=== PATIENT | male | born 1965 ===

== ENCOUNTER 2019-04-25 16:13 | Outpatient (REF) | payer BC, SELFPAY ==
[2019-04-25 18:44] LABS: Anion Gap 15.4 mmol/L (3-11); BUN 14 mg/dL (7-18); CO2 22.6 mmol/L (21.0-32.0); CREATININE 0.85 mg/dL (0.70-1.30); Calcium 9.5 mg/dL (8.5-10.1); Chloride 103 mmol/L (98-107); Glucose 94 mg/dL (70-100); Potassium 4.2 mmol/L (3.5-5.1); Sodium 141 mmol/L (136-145)
[2019-04-27 12:05] LABS: Hepatitis C Ab w Rflx HCV PCR Negative (NEGAT)
== END 2019-04-25 16:33 ==
LOC: NCHCN 16:13
PROVIDERS: PCP Family Medicine; Visit Provider Family Medicine
DX: Z00.00 Encounter for general adult medical examination without abnormal findings (principal); Z13.228 Encounter for screening for other metabolic disorders; Z11.59 Encounter for screening for other viral diseases
CPT/HCPCS: 80048; 86803

== ENCOUNTER 2020-04-29 17:42 | Outpatient (REF) | payer BC, SELFPAY ==
[2020-04-29 19:01] LABS: Abs Immature Grans 0.03 10^3/uL (0.0-0.06); Absolute Basophil Count 0.04 10^3/uL (0.0-0.2); Absolute Eosinophil Count 0.16 10^3/uL (0.0-0.7); Absolute Lymphocyte Count 2.81 10^3/uL (1.2-3.4); Absolute Monocyte Count 0.64 10^3/uL (0.1-0.8); Basophils % 0.6; Eosinophils % 2.3; HCT 45.6 % (40.0-50.0); HGB 15.4 g/dL (13.5-17.5); Immature Grans % 0.4; Lymphocytes % 40.8; MCH 30.3 pg (27.0-33.0); MCHC 33.8 % (32.0-36.0); MCV 89.6 fL (80-95); MPV 10.2 fL (8.0-11.0); Monocytes % 9.3; Neutrophils % 46.6; Nucleated RBC 0 %; Platelet Count 245 10^3/uL (130-400); RBC 5.09 10^6/uL (4.36-5.78); RDW 12.3 % (11.8-14.1); RDW-SD 40.7 fL; WBC 6.88 10^3/uL (4.4-10.8)
[2020-04-29 19:37] LABS: Anion Gap 8.1 mmol/L (3-11); BUN 13 mg/dL (7-18); CO2 27.9 mmol/L (21.0-32.0); CREATININE 0.81 mg/dL (0.70-1.30); Calcium 9.5 mg/dL (8.5-10.1); Chloride 101 mmol/L (98-107); Glucose 81 mg/dL (74-106); Sodium 137 mmol/L (136-145); TSH (W/Ref FT4) 1.28 uIU/mL (0.36-3.74); Vitamin B12 467 pg/mL (193-986)
== END 2020-04-29 18:02 ==
LOC: NCHCN 17:42
PROVIDERS: PCP Family Medicine; Visit Provider Family Medicine
DX: I10 Essential (primary) hypertension (principal); F32.9 Major depressive disorder, single episode, unspecified
CPT/HCPCS: 80048; 82607; 84443; 85025

== ENCOUNTER 2020-07-04 21:57 | Emergency (ER) | payer BC, SELFPAY ==
[2020-07-04 22:01] VITALS: BP 160/96; PULSE 91; RESP 20; TEMP 36.4; O2SAT 97
--- NOTE | 2020-07-04 22:12 | ED.GENADUL_ITS ---
Discharge Plan Disposition Patient Disposition: HOME Condition: Stable Discharge Details Clinical Impression: Acute prostatitis Primary Care Provider: Yosef Armenta ED Provider: Hudson Fraser Home Meds and New Rx's Prescriptions: New ciprofloxacin HCl 500 mg tablet 500 mg PO BID 9 Days Qty: 18 RF: 0 phenazopyridine [Pyridium] 100 mg tablet 100 mg PO BID 2 Days Qty: 4 RF: 0 Continued nabumetone 500 mg tablet 500 mg PO BID RF: 0 propranolol 80 mg capsule,extended release 24 hr 80 mg PO DAILY RF: 0 ibuprofen [Advil] 200 mg tablet 200 mg PO Q6H PRNRF: 0 sildenafil [Viagra] 50 mg tablet 50 mg PO DAILY PRNRF: 0 lisinopril-hydrochlorothiazide 20-25 mg tablet 1 tab PO DAILY RF: 0 omeprazole 20 mg capsule,delayed release(DR/EC) 20 mg PO DAILY RF: 0 Discharge Instructions Additional Instructions: Follow-up with Dr. Armenta in clinic if not improving in 3 to 5 days time. Take Pyridium as prescribed twice daily. This will relieve the burning sensation and may turn your urine bright orange. Take antibiotics as prescribed. Return to the ER for any acute concerns. Medical Decision Making 55-year-old male presents from home with 3 days of intermittent episodes of urinary burning. Seems to be most at the start of the stream of urine. Patient says he is also had increased urgency to go and frequency of urination. Denies back pain or fever. No bloody urine. Patient's vital signs are unremarkable, he has known hypertension. His exam is unremarkable. Differential diagnosis includes acute cystitis, prostatitis, renal colic. Patient screening labs obtained, urinalysis, and is referred for CT of the abdo men and pelvis. He was given Pyridium for relief of his dysuria. Urinalysis is essentially unremarkable and the patient's labs note a white count of 12. CT without acute intra-abdominal pathology. Note of enlarged prostate with stranding. Most consistent with prostatitis. Discussed digital exam which we will defer. We will treat him with 10 days of fluoroquinolone. He understands homecare and is appropriate for discharge at this time. HPI General Mode of arrival: ambulatory . Date/Time Provider Initiated Documentation: 07/04/20 21:58 . Limitations to Documentation: no limitations . Information obtained by: patient . History of Present Illness 55 year old M presents to the emergency department with the chief complaint of Urinary burning, frequency and urgency for 3 days, described as moderate, and is localized to the pelvis. Patient reports no radiation. Patient started experiencing this day(s) and it has been intermittent. No relieving factors improve symptom(s), No exacerbating factors reported . Patient notes other (No back pain); denies fever/chills, loss of appetite and nausea/vomiting. Patient did receive the following treatments prior to arrival, none Related Data Home Medications Medication Instructions Recorded Confirmed ibuprofen 200 mg tablet 200 mg PO Q6H PRN 06/14/20 07/04/20 lisinopril 20 1 tab PO DAILY 06/14/20 07/04/20 mg-hydrochlorothiazide 25 mg tablet nabumetone 500 mg tablet 500 mg PO BID 06/14/20 07/04/20 omeprazole 20 mg capsule,delayed 20 mg PO DAILY 06/14/20 07/04/20 release propranolol 80 mg capsule,24 80 mg PO DAILY 06/14/20 07/04/20 hr,extended release sildenafil 50 mg tablet 50 mg PO DAILY PRN 06/14/20 07/04/20 ciprofloxacin HCl 500 mg PO BID 9 Days #18 tab 07/04/20 phenazopyridine [Pyridium] 100 mg PO BID 2 Days #4 tab 07/04/20 Previous Rx's Medication Instructions Recorded ciprofloxacin HCl 500 mg PO BID 9 Days #18 tab 07/04/20 phenazopyridine [Pyridium] 100 mg PO BID 2 Days #4 tab 07/04/20 Allergies Allergy/AdvReac Type Severity Reaction Status Date / Time No Known Allergies Allergy Unverified 07/04/20 22:04 General Stated Complaint: Urinary AME: 3 Review of Systems Narrative: 6 systems reviewed and otherwise negative [facility] Medical History Adenomatous colon polyp Back pain Depression Erectile dysfunction GERD (gastroesophageal reflux disease) History of depression Hypertension Obesity Plantar fasciitis PTSD (post-traumatic stress disorder) Tinea versicolor Tobacco use Social History Smoking/Tobacco Use Status: Former Tobacco Use Smoking risk assessment performed?: Yes Alcohol Intake: current Alcohol Intake frequency: holidays/special occasions only Drug use: Never Do you feel safe at home: Yes Do you feel safe in your relationship?: Yes Exam Narrative Exam Narrative: GEN: awake, alert, oriented 3. Pleasant, well groomed, interactive. HEAD: Normocephalic, atraumatic ENT: Mucous membranes moist, oropharynx unremarkable, External ear exam unremarkable EYES: PERRL, EOMI NECK: Full ROM, no CARLI, no menigismus CHEST/RESP: Nontender, clear to auscultation bilateral, no wheeze/rhonchi/rales CARDIOVASCULAR: RRR, no murmur, rub minesh. 2+ Rad pulse bilateral ABDOMEN: Soft, nontender, no mass. +Bowel sounds EXT: Full ROM, no edema, no rash Neuro: Grossly normal neurologic exam, conversant, interactive. Psych: Speech fluent, thoughts congruent, affect normal Course Vital Signs Vital signs: Vital Signs Temperature 36.4 C L 07/04/20 22:01 Pulse 91 H 07/04/20 22:01 Respiratory Rate 20 07/04/20 22:01 Blood Pressure 160/96 H 07/04/20 22:01 Pulse Oximetry 97 07/04/20 22:01 Temperature 36.4 C L 07/04/20 22:01 Temperature Source Temporal Artery Scan 07/04/20 22:01 Pulse 91 H 07/04/20 22:01 Respiratory Rate 20 07/04/20 22:01 Respiratory Effort Non-Labored 07/04/20 22:04 Blood Pressure 160/96 H 07/04/20 22:01 Blood Pressure Position Sitting 07/04/20 22:01 Pulse Oximetry 97 07/04/20 22:01 Oxygen Delivery Method Room Air 07/04/20 22:01 Oxygen Flow Rate 0 07/04/20 22:01 Pain Level 9 07/04/20 22:04
[2020-07-04 22:31] LABS: Bilirubin Negative (Negative); Blood Negative (Negative); Clarity Clear (Clear); Glucose Negative (Negative); Ketones Negative (Negative); Leukocyte Esterase Negative (Negative); Nitrite Negative (Negative); Specific Gravity 1.025 (1.005-1.025); Urobilinogen 0.2 EU/dL (Up TO 0.2); pH 6.5 (5-8)
[2020-07-04 22:49] LABS: Abs Immature Grans 0.07 10^3/uL (0.0-0.06); Absolute Basophil Count 0.05 10^3/uL (0.0-0.2); Absolute Eosinophil Count 0.19 10^3/uL (0.0-0.7); Absolute Lymphocyte Count 2.44 10^3/uL (1.2-3.4); Absolute Monocyte Count 1.25 10^3/uL (0.1-0.8); Absolute Neutrophil Count 8.14 10^3/uL (1.2-6.7); Basophils % 0.4; Eosinophils % 1.6; HCT 42.6 % (40.0-50.0); HGB 14.5 g/dL (13.5-17.5); Immature Grans % 0.6; Lymphocytes % 20.1; MCH 30.3 pg (27.0-33.0); MCV 88.9 fL (80-95); MPV 9.1 fL (8.0-11.0); Monocytes % 10.3; Nucleated RBC 0 %; Platelet Count 255 10^3/uL (130-400); RBC 4.79 10^6/uL (4.36-5.78); RDW 12.2 % (11.8-14.1); RDW-SD 40.2 fL; WBC 12.15 10^3/uL (4.4-10.8)
--- NOTE | 2020-07-04 23:00 | DI.CT_ITS ---
EXAM: CT ABDOMEN PELVIS WO CLINICAL HISTORY: urinary frequency, pain. TECHNIQUE: Imaging Protocol: Axial computed tomography images with coronal and sagittal reformatted images were created and reviewed. COMPARISON: No exams were available for comparison FINDINGS: ABDOMEN: Lung Bases: No nodules or pleural effusions. Liver: Mild steatosis. No obvious focal lesions evident on this non few study. No dilatation of int rahepatic ducts. Gallbladder and biliary tract: Gallbladder is small. No obvious calculi nor dilatation of the biliar y tree, both intra and extrahepatic. Pancreas: Unremarkable. No mass. Ducts not dilated. Spleen: Normal. Kidneys: There are 2 exophytic cyst off the superior pole of the left kidney. Towards the inferior p ole there is another probable cyst measuring 1.8 centimetres. In the opposite-right kidney there rashmi ears to be a is 1.5 centimeter cyst in the medial cortex. Difficult to assess without IV contrast. There are no renal calculi. No hydronephrosis nor hydroureter. Urinary bladder is not distended. B ladder wall is uniformly thickened but this may be due to the underdistention versus cystitis. Prost ate gland is not enlarged. Adrenal glands: No mass is seen. Lymph nodes: Within normal limits. Abdominal Aorta: No evidence of abdominal aortic aneurysm. There is no para-aortic adenopathy. No a denopathy around the aortic bifurcation nor along the iliac chains and there is no inguinal adenopath y. There is an anterior abdominal wall umbilical hernia which contains fat and no bowel loops. There is no bowel obstruction. No free air. No ascites. PELVIS: There is no intrapelvic or inguinal adenopathy. No evidence for appendicitis. There are sigmoid div erticula but no evidence of acute diverticulitis. No free fluid in the pelvis. Osseous: No lytic osseous lesions identified. IMPRESSION: 1. Hepatic steatosis. No obvious focal lesions evident in the liver on this non few study. 2. Bilateral renal cysts, somewhat difficult to evaluate accurately without IV contrast and might con shaker operator follow-up renal ultrasound for confirmation. 3. Anterior abdominal wall midline umbilical hernia which contains fat and no bowel loops. There is no bowel obstruction. RADIATION DOSE DELIVERED: 1,310.59mGy.cm Total DLP DATA REPOSITORY: All CT scans at this facility are submitted to the National Radiology Data Registry (NRDR) Dose Index Registry (DIR) with the [employer] ([employer]). RADIATION OPTIMIZATION: All CT scans at this facility use at least one of these dose optimization te chniques: automated exposure control; mA and/or kV adjustment per patient size (includes targeted exa ms where dose is matched to clinical indication); or iterative reconstruction.
[2020-07-04 23:03] LABS: ALT 30 U/L (16-63); AST 15 U/L (15-37); Albumin 3.4 g/dL (3.4-5.0); Alkaline Phosphatase 51 U/L (46-116); Anion Gap 8.4 mmol/L (3-11); BUN 14 mg/dL (7-18); Bilirubin, Total 0.5 mg/dL (0.2-1.0); CO2 24.6 mmol/L (21.0-32.0); CREATININE 0.99 mg/dL (0.70-1.30); Calcium 8.8 mg/dL (8.5-10.1); Chloride 104 mmol/L (98-107); Glucose 114 mg/dL (74-106); Sodium 137 mmol/L (136-145); Total Protein 7.8 g/dL (6.4-8.2)
--- NOTE | 2020-07-04 23:18 | DI.VRAD_ITS ---
PROCEDURE INFORMATION: Exam: CT Abdomen And Pelvis Without Contrast Exam date and time: 07/04/2020 10:40 PM Age: 55 years old Clinical indication: Abdominal pain; Generalized TECHNIQUE: Imaging protocol: Computed tomography of the abdomen and pelvis without contrast. Radiation optimization: All CT scans at this facility use at least one of these dose optimization techniques: automated exposure control; mA and/or kV adjustment per patient size (includes targeted exams where dose is matched to clinical indication); or iterative reconstruction. COMPARISON: No relevant prior studies available. FINDINGS: Liver: Hepatic steatosis. Gallbladder and bile ducts: No calcified stones. No ductal dilation. Pancreas: No ductal dilation. Spleen: No splenomegaly. Adrenal glands: Normal. No mass. Kidneys and ureters: Left renal cortical cyst, 2.3 cm, appears to be simple. Right renal cortical cyst, 2.6 centimetres, appears to be simple. Stomach and bowel: Colonic diverticulosis. Linear density within small bowel loops in the pelvis, 3.5 centimetres in length, possibly ingested Appendix: No evidence of appendicitis. Intraperitoneal space: No free air. No significant fluid collection. Vasculature: Atherosclerotic abdominal aorta and branches. Lymph nodes: No enlarged lymph nodes. Urinary bladder: Unremarkable as visualized. Reproductive: Enlarged prostate. Bones/joints: Degenerative changes within thoracic and lumbar spine. Soft tissues: The abdomen is obese. Fat containing umbilical hernia. IMPRESSION: No acute intra-abdominal pathology. Dictated and Authenticated by: Jose Milligan MD. Ordering:SERGIO Treviño MD
[2020-07-04] MEDS: Phenazopyridine 100 MG TAB, 2 TABS/BTL PO (23:32)
[2020-07-04 23:33] VITALS: BP 138/88; PULSE 82; RESP 16; O2SAT 96
== END 2020-07-04 23:36 | disposition home or self-care (01) ==
PROVIDERS: Emergency Provider Emergency Medicine; PCP Family Medicine
DX: N41.0 Acute prostatitis (principal); R35.0 Frequency of micturition; I10 Essential (primary) hypertension
CPT/HCPCS: 80053; 99284; 74176; 81003; 85025

== ENCOUNTER 2020-08-05 03:34 | Outpatient (CLI) | payer BC, SELFPAY ==
[2020-08-06 19:21] LABS: COVID-19 RT-PCR UVMMC Result Negative (Negative)
== END 2020-08-05 03:54 ==
PROVIDERS: PCP Family Medicine; Visit Provider Surgery
DX: Z11.59 Encounter for screening for other viral diseases (principal); Z01.818 Encounter for other preprocedural examination
CPT/HCPCS: U0003

== ENCOUNTER 2020-08-08 06:04 | Day surgery (SDC) | payer BC, SELFPAY ==
[2020-08-08 06:28] VITALS: BP 136/106; PULSE 87; RESP 16; TEMP 36.6; O2SAT 97
[2020-08-08] MEDS: Lactated Ringers 1,000 ML 80 ML IV (06:56)
--- NOTE | 2020-08-08 09:20 | BOWEL_PTH ---
PATIENT: Nicole Mueller LOC: [facility] U#:[id number] AGE/SX: 55/M ROOM: RE08/08/[address]: Jinny Chandra : 1965 BED: DIS: 08/08/2020 SPEC #: [id number] RECD: 08/08/20 12:48 STATUS: NAVA REQ #: [id number] HAYDER: 08/08/20 09:[address]: Jinny Chandra DEPT: Surgical Specimen RECD BY: Jennifer Howell ENTERED: 08/08/20 12:50 SP TYPE: Bowel OTHR DR: Yosef Armenta Tissues: 1 - BIOPSY BOWEL 2 - BIOPSY BOWEL 3 - BIOPSY BOWEL 4 - BIOPSY BOWEL Procedures: GROSS AND MICRO LEVEL 4 Comments: [id number]
--- NOTE | 2020-08-08 09:51 | W.PM.DSUDISC ---
Discharge Plan Disposition Patient Disposition: HOME Condition: Good Discharge Details Reason For Visit: colon scope Attending Provider: Jinny Chandra Primary Care Provider: Yosef Armenta Home Meds and New Rx's Prescriptions: Continued propranolol 80 mg capsule,extended release 24 hr 80 mg PO DAILY RF: 0 ibuprofen [Advil] 200 mg tablet 200 mg PO Q6H PRNRF: 0 sildenafil [Viagra] 50 mg tablet 50 mg PO DAILY PRNRF: 0 lisinopril-hydrochlorothiazide 20-25 mg tablet 1 tab PO DAILY RF: 0 omeprazole 20 mg capsule,delayed release(DR/EC) 20 mg PO DAILY RF: 0 Discontinued polyethylene glycol 3350 17 gram/dose powder 238 g PO ONCE Qty: 238 RF: 0 bisacodyl [Dulcolax (bisacodyl)] 5 mg tablet,delayed release (DR/EC) 5 mg PO ONCE Qty: 4 RF: 0 Discharge Instructions Additional Instructions: Findings:polyps x4. Very small and diverticula Follow up: will send a letter w/ results (2-3 wks) and when to repeat the scope (probably 3-5yrs) Please call if you develop: fevers >101.5 Nausea or Vomiting Abdominal pain that is not transient DAY SURGERY UNIT POST COLONOSCOPY INSTRUCTIONS 1. Because there will be medication in your system for the next 24 hours, you may feel a little sleepy. Your coordination will be affected. Therefore: a. Do not drive or operate dangerous equipment for 24 hours. b. Do not drink alcohol beverages for 24 hours (not even beer). c. Plan to go home and rest for the day. 2. Generally there are no restrictions on your activity after a day or so has gone by, but you may feel a bit fatigued for a few days. 3 After you arrive home you may have a light meal and return to a normal diet as you can tolerate it without feeling sick to your stomach. 4. After surgery, you may feel pain or discomfort. This should be only transient, but if it persists please contact your doctor. 5. If there are any questions regarding the findings of your procedure, please feel free to contact your doctor. 6. If you are unable to contact your doctor with a problem, contact the hospital at [phone]. 7. Continue all your regular medications unless directed otherwise. I understand the above instructions and have no questions. Signature of Patient or Responsible Adult Escort Date/Time Name of Responsible Adult Escort Signature of Nurse Date/Time DIVERTICULAR DISEASE OVERVIEW ? A diverticulum is a pouch-like structure that can form through points of weakness in the muscular wall of the colon (ie, at points where blood vessels pass through the wall). Diverticulosis affects men and women equally. The risk of diverticular disease increases with age. It occurs throughout the world but is seen more commonly in developed countries. WHAT IS DIVERTICULAR DISEASE? Diverticulosis ? Diverticulosis merely describes the presence of diverticula. Diverticulosis is often found during a test done for other reasons, such as flexible sigmoidoscopy, colonoscopy, or barium enema. Most people with diverticulosis have no symptoms and will remain symptom free for the rest of their lives. A person with diverticulosis may have diverticulitis, or diverticular bleeding. Diverticulitis ? Inflammation of a diverticulum (diverticulitis) occurs when there is thinning and breakdown of the diverticular wall. This may be caused by increased pressure within the colon or by hardened particles of stool, which can become lodged within the diverticulum. The symptoms of diverticulitis depend upon the degree of inflammation present. The most common symptom is pain in the left lower abdomen. Other symptoms can include nausea and vomiting, constipation, diarrhea, and urinary symptoms such as pain or burning when urinating or the frequent need to urinate. Diverticulitis is divided into simple and complicated forms. ?Simple diverticulitis, which accounts for 75 percent of cases, is not associated with complications and typically responds to medical treatment without surgery. ?Complicated diverticulitis occurs in 25 percent of cases and usually requires surgery. Complications associated with diverticulitis can include the following: ?Abscess ? a localized collection of pus ?Fistula ? an abnormal tract between two areas that are not normally connected (eg, bowel and bladder) ?Obstruction ? a blockage of the colon ?Peritonitis ? infection involving the space around the abdominal organ ?Sepsis ? overwhelming body-wide infection that can lead to failure of multiple organs Diverticular bleeding ? Diverticular bleeding occurs when a small artery located within a diverticulum is eroded and bleeds into the colon. Diverticular bleeding usually causes painless bleeding from the rectum. In approximately 50 percent of cases, the person will see maroon or bright red blood with bowel movements. Is bleeding with a bowel movement normal? ? It is not normal to see blood in a bowel movement; this can be a sign of several conditions, most of which are not serious (eg, hemorrhoids) but some of which are serious and require immediate treatment. Anyone who sees blood after a bowel movement should consult with their healthcare provider to determine if further testing or evaluation is needed. DIVERTICULOSIS AND DIVERTICULITIS DIAGNOSIS ? Diverticulosis is often found during tests performed for other reasons. ?Barium enema ? This is an x-ray study that uses barium in an enema to view the outline of the lower intestinal tract. This is an older test and has been largely replaced by computed tomography (CT) scan. ?Flexible sigmoidoscopy ? This is an examination of the inside of the sigmoid colon with a thin, flexible tube that contains a camera. ?Colonoscopy ? This is an examination of the inside of the entire colon. ?CT scan ? A CT scan is often used to diagnose diverticulitis and its complications. If diverticulitis (not just diverticulosis) is suspected, the above three tests should not be used because of the risk of perforation. TREATMENT Diverticulosis ? People with diverticulosis who do not have symptoms do not require treatment. However, most clinicians recommend increasing fiber in the diet, which can help to bulk the stools and possibly prevent the development of new diverticula, diverticulitis, or diverticular bleeding. Fiber is not proven to prevent these conditions in all patients but may help to control recurrent episodes in some. Increase fiber ? Fruits and vegetables are a good source of fiber. Fiber content of packaged foods can be calculated by reading the nutrition label. Seeds and nuts ? Patients with diverticular disease have historically been advised to avoid whole pieces of fiber (such as seeds, corn, and nuts) because of concern that these foods could cause an episode of diverticulitis. However, this belief is completely unproven. We do not suggest that patients with diverticulosis avoid seeds, corn, or nuts. Diverticulitis ? Treatment of diverticulitis depends upon how severe your symptoms are. Home treatment ? If you have mild symptoms of diverticulitis (mild abdominal pain, usually left lower abdomen), you can be treated at home with a clear liquid diet and oral antibiotics. However, if you develop one or more of the following signs or symptoms, you should seek immediate medical attention: ?Temperature >100.1?F (38?C) ?Worsening or severe abdominal pain ?An inability to tolerate fluids Hospital treatment ? If you have moderate to severe symptoms, you may be hospitalized for treatment. During this time, you are not allowed to eat or drink; antibiotics and fluids are given into a vein. If you develop an abscess of the colon, you may require drainage of the abscess (usually performed by placing a drainage tube across the abdominal wall) or by surgically opening the affected area. Surgery ? If you develop a generalized infection in the abdomen (peritonitis), you will usually require an emergency operation. A two-part operation may be necessary in some cases. ?The first operation involves removal of the diseased colon and creation of a colostomy. A colostomy is an opening between the colon and the skin, where a bag is attached to collect waste from the intestine. The lower end of the colon is temporarily sewed closed to allow it to heal. ?Approximately three to six months later, a second operation is performed to reconnect the two parts of the colon and close the opening in the skin. You are then able to empty your bowels through the rectum. Sometimes patients require up to a year to recover from the first operation, depending on how sick they were. In non-emergency situations, the diseased area of the colon can be removed and the two ends of the colon can be reconnected in one operation, without the need for a colostomy. Surgery versus medical therapy ? An operation to remove the diseased area of the colon may be necessary if you do not improve with medical therapy. After an episode of uncomplicated diverticulitis, elective surgery is generally not required as the risk of another attack or requiring emergency surgery is low. However, patients with persistent symptoms attributable to diverticulitis, a history of complicated diverticulitis, or a compromised immune system should be evaluated for possible surgery to prevent another attack. In such patients, another attack has been associated with a higher risk of complications or . Of course, the decision will also depend in part upon your other medical conditions and ability to undergo surgery. In many cases, an elective operation can be performed laparoscopically, using small incisions, rather than the typical vertical (up and down) abdominal incision. Laparoscopic surgery usually allows you to recover more quickly and shortens the hospital stay. After diverticulitis resolves ? After an episode of diverticulitis resolves, if you have not had a recent colonoscopy, the entire length of the colon should be evaluated to determine the extent of disease and to rule out the presence of abnormal lesions such as polyps or cancer. Recommended tests include colonoscopy, barium enema and sigmoidoscopy, or CT colonography. Diverticular bleeding ? Most cases of diverticular bleeding resolve on their own. However, some people will need further testing or treatment to stop bleeding, which may include a colonoscopy, angiography (a treatment that blocks off the bleeding artery), bleeding scan, or surgery. DIVERTICULAR DISEASE PROGNOSIS Diverticulosis ? Over time, diverticulosis may cause no problems or it may cause episodes of bleeding and/or diverticulitis. Approximately 15 to 25 percent of people with diverticulosis will develop diverticulitis, while 5 to 15 percent will develop diverticular bleeding. Diverticulitis ? Approximately 85 percent of people with uncomplicated diverticulitis will respond to medical treatment, while approximately 15 percent of patients will need an operation. After successful treatment for a first attack of diverticulitis, one-third of patients will remain asymptomatic, one-third will have episodic cramps without diverticulitis, and one-third will go on to have a second attack of diverticulitis. The prognosis tends to remain similar following a second attack of diverticulitis. Only 10 percent of people remain symptom-free after a second attack. Subsequent attacks tend to be of similar severity, not increasing in severity as previously believed. High Fiber Diet What is Dietary Fiber? All fiber comes from plants, bushes, alyssa or trees. Of course, the ones that we eat provide us with fruits, vegetables and grains. There are many different types of fiber but the three that are most important to the health of the body are: Insoluble Fiber This fiber does not dissolve in water, nor is it fermented by the bacteria residing in the colon. Rather, it retains water and in so doing, helps to promote a larger, bulkier and more regular bowel activity. This, in turn, may be important in preventing disorder such as diverticulosis and hemorrhoids, and in sweeping out certain toxins and cancer causing carcinogens. Sources of insoluble fiber are: ? whole grain wheat and other whole grains ? corn bran, including popcorn, unflavored and unsweetened ? nuts and seeds ? potatoes and the skins from most fruits from trees such as apples, bananas and avocados ? many green vegetables such as green beans, zucchini, celery and cauliflower ? some fruit plants such as tomatoes and kiwi Soluble Fiber These fibers are fermented or used by the colon bacteria as a food source or nourishment. When these good bacteria grow and thrive, many health benefits occur in both the colon and the body. Soluble fiber is present in some degree in most edible plant foods, but the ones with the most soluble fiber include: ? legumes such as peas and most beans, including soybeans ? oats, rye and barley ? many fruits such as berries, plums, apples bananas and pears ? certain vegetables such as broccoli and carrots ? most root vegetables ? psyllium husk supplement products Prebiotic Soluble Fiber These are relatively newly discovered soluble plant fibers. The technical name for this fiber is inulin or fructan. When these soluble fibers are fermented by the good colon bacteria, some further significant health benefits have been shown to occur by research in many medical centers. These soluble prebiotic fibers occur in significant amounts in: ? asparagus ? yams ? onions ? garlic ? bananas ? leeks ? agave ? chicory and other root vegetables such as [place] artichokes ? wheat, rye and barley (smaller amounts) Benefits of a High Fiber Diet The health benefits of a high fiber diet, consumed on a regular basis and reaching recommended amounts (below), are now fairly well-defined. There are some additional benefits in the early research stage with the prebiotic soluble fibers. What is now known regarding a high fiber diet include: Bowel Regularity A high fiber diet promotes regularity with a softer, bulkier and regular stool pattern. This decreases the chance of hemorrhoids, diverticulosis and perhaps colon cancer. Cholesterol and Reduced Triglycerides The soluble fibers are the ones that will reduce cholesterol levels when used on a regular basis. Psyllium husk and prebiotic soluble fiber will also reduce cholesterol. They may also reduce the incidence of coronary heart disease. Oats, flax seeds and legumes or beans are the recommended fibers. Colon Polyps and Cancer It is still not certain if a high fiber diet helps prevent colon cancer. Considerable research suggests that this may occur. Certainly it makes sense to increase regularity and so speed the movement of cancer causing carcinogens through the bowel. In addition, reducing a heavy meat diet reduces the bile flow from the liver in a favorable way. This, too, reduces the amount of carcinogens that reach and are manufactured in the colon. Finally, a high fiber diet, including prebiotic soluble fiber, increases the integrity and health of the wall of the colon. The risk of cancer may be reduced. Colon Wall Integrity A high fiber diet changes the bacterial makeup of the colon toward a more favorable balance. For instance, it is known that those people with obesity, diabetes type 2 and inflammatory bowel disease have a predominance of bad bacteria in the colon. This, in turn, may render the bowel wall weak and allow bacteria and, indeed, even toxins to seep through. A high fiber diet with a modest reduction in animal and meat products may return the bacterial makeup to a more positive balance. This, in particular, has been seen when the soluble fiber prebiotics are added to the diet. Blood Sugar Soluble fiber such as in legumes (beans), oats and in prebiotic fibers slows the absorption of blood sugar and so helps regulate the sugar in the blood. Insoluble fiber on a regular basis is associated with reduced risk of type 2 diabetes. Weight Loss High fiber diets are more filling and give a sense of fullness sooner than an animal and meat based diet does. In addition, the soluble prebiotic fibers have been shown to turn off the hunger hormones produced in the wall of the gut and to increase the hormones that give a sense of fullness. Those hormones are made in the wall of the gut. New medical research has shown that the bacterial makeup in the colon in overweight people is abnormal to the extent that they manufacture and absorb almost twice the number of calories through the colon wall as do normals. Prebiotic fibers (below) will help change this hormonal balancein a favorable way. Bacteria and the Function of the Colon The colon finishes the digestive process. Hopefully, the waste products move through in a nice regular manner. Insoluble fibers help this process by retaining water and so producing a bulkier, softer stool, which is easy to pass. The additional role of the colon is to provide a home for an enormous number of micro-organisms, mostly bacteria. Recent research has shown that there are over 1,000 species of bacteria with a total bacterial count ten times the number of cells in the body. These bacteria play a major role in keeping the colon wall itself healthy. In addition, these good bacteria produce a very strong immune system for the body. They significantly increase calcium absorption and bone density. They provide other documented benefits. It is the soluble fibers in the diet that are so effective in stimulating the growth of good colon bacteria. How Much is Enough? The amount of fiber in food is measured in grams. National nutritional authorities recommend the following amounts of dietary fiber daily. Under Age 50 Over Age 50 Men 38 grams 30 grams Women 25 grams 21 grams For a week or so, it is best to tally the amount of fiber you are consuming. Boxed and packaged foods will have the amount of fiber per serving on the nutrition label. Which Fibers and Which Foods are Best? As noted, healthy fiber is only found in plants. The three major categories are whole grains, fruits and vegetables. Whole Grains Wheat, oats, barley, wild or brown rice, amaranth, buckwheat, bulgur, corn, millet, quinoa, rye, sorghum, teff and triticals. By far, wheat, oats and wild or brown rice are most common. Always buy whole grain products. White bread, baked goods and rolls almost always are made from wheat flour. Wheat flour is white because most of the fiber, vitamins and other nutrients have been removed. Try not buy enriched grains. What this means is that simple white flour has had vitamins added to it by the spool carrier. The word, enriched, implies a good and healthy product. On the contrary, enriched means that most of the fiber has been removed and a few vitamins added. Fruits Fruits come from trees such as apple and pear or from bushes or alyssa. You should eat a wide variety of fruits, preferably with every meal. In many cases, the skin of a fruit such as apple will contain much of the insoluble fiber while the pulp contains most of the soluble fiber. To the extent possible, buy organic fruits as these will have little or no pesticides. Always wash fruit. Vegetables Eat a wide variety of vegetables. They should be a mainstay of lunch and dinners. Frozen vegetables retain as much nutrition and fiber as fresh vegetables. As with fruit, try to buy organic to reduce any residual pesticide ingestion. Wash fresh vegetables thoroughly. Cruciferous vegetables such as broccoli, [place] sprouts and cauliflower contain certain chemicals such as sulforaphane. This substance has very strong anti-cancer properties and should be eaten frequently. Legumes, Beans, Peas and Soybeans These vegetables have plenty of soluble fiber and should be part of a varied vegetable intake. Beans, in particular, contain a certain type of fiber that may lead to harmless gas or bloating. Nuts and Seeds These are rich sources of fiber and are a good substitute for sweets such as candies and baked sweet goods. While nuts and seeds are rich in fiber, they also contain vegetable fat and so can and do add calories. Read the Labels As noted, fresh and frozen foods are usually better. They have good nutrition and few, if any, chemicals added to them. When buying packaged foods and, in particular grains, look for three things: ? The first word on the label should be whole, such as whole wheat or whole grain. ? Check out the calories and the amount of fiber in a serving. ? How many and what other additives or chemicals are added. Fewer is always better. Do you know what each additive does? Some are added not for the benefit of the junior media buyer but rather for manufacturers. These could and do include sugar, artificial flavor, chemicals to prevent oxidation and spoilage, emulsifiers to blend the product. You have to be a solar manufacturer's representative. Fiber Facts, Nuggets and Pearls ? For breakfast you can easily get the day started well by using a high fiber, whole grain cereal. Check the labels. Add fruit such as blueberries and bananas. If you are an egg eater, use whole wheat or grain toast. Adding wheat germ gives you a good fiber kick. ? Always use whole grain or wheat with rolls and sandwiches. Does your fast food store not have them? Perhaps you look elsewhere. Eating an occasional black cronin or veggie burger provides variety. ? Snacks should consist of fruit and/or nuts. While nuts are loaded with fiber, they are an energy rich food, meaning they have a lot of calories in a small packet. ? Fruit juices should contain pulp. Clear juices such as clear orange, pear or apple juice contain little fiber and have a lot of fructose. Prune juice is usually high in fiber. ? Homemade soups ? adding fresh or frozen vegetables to a chicken or vegetable stock is a good way to start homemade soup. ? Salads ? adding cooked and then chilled vegetables provide great flavoring to almost any salad. Remember, a alan salad has lots of cooked corn in it. Small slices of apples or oranges and nuts such as chopped walnuts or sliced almonds always adds taste, variety and fiber to almost any salad. ? Fruit ? Try to eat fruit of some type with almost every meal. ? Rethink how you place the various foods on your dinner plate. Reducing the portions of the meat or animal food portion to the side with equal or more portions of vegetables, legumes and fruits portion always allows for more fiber. There was never anything magic about making the meat or animal food portion the main part of the dinner plate. Eating from smaller plates can, over time, trick your mind and superintendent marine [employer] habit of using a dinner plate. Again, there is nothing magic in an 11, 12, or 13 inch dinner plate. Fiber Supplements There are a variety of fiber supplements available on the food or pharmacy shelves. Psyllium This soluble plant fiber has been used in [place] for over 2,000 years. It is a soluble fiber with mucilage in it. This acts to retain a lot of water and also is fermented by colon bacteria. When 7 grams a day are used, it does lower cholesterol. Metamucil in various forms is psyllium. Methyl Cellulose All the cellulose products come from finely ground wood chips which are then treated in a variety of ways such as boiling in acids. Methyl cellulose is an insoluble fiber which does dissolve in water. It is also an emulsifier, meaning it blends oils and water. Citrucel is methyl cellulose (MC). MC may not be appropriate for Crohn?s disease or ulcerative colitis as several medical studies have shown that certain emulsifiers dissolve the mucous lining of the colon in animals prone to Crohn?s disease. This then allows bacteria to invade the underlying tissue. Inulin Inulin is a soluble prebiotic fiber found in many foods and which are fermented mostly in the left side of the colon. It is available in a supplement as generic inulin and in Fiber Choice. Oligofructose FOS These are also prebiotic fibers. They are fermented very quickly in the right side of the colon. Prebiotin This product is a combination of oligofructose, which feeds the bacteria in the right side of the colon and inulin, which does the same in the left side of the colon. There seems to be a benefit for this particular formula based on medical research. Prebiotic Soluble Fiber These may be the healthiest of all the soluble fibers. They grow in many plants and have had a great deal of research done on them in the last 10-15 years. These fibers are found in asparagus, yams and other root vegetables such as chicory, garlic, onion, leeks and in smaller amounts in wheat. This research has shown the following: ? Increase in good and decrease in bad colon bacteria ? Increase calcium absorption and enhanced bone mass ? Enhanced immune system ? Appetite and weight control by changing the hormone appetite signals to the brain ? May decrease colon cancer incidence ? Reduce or correct a leaky colon Eating a wide variety of plant food up to the recommended amount will likely give you enough prebiotic fiber. Supplements such as Prebiotin can be added to the diet. Short Chain Fatty Acids (SCFA) Some rather remarkable research findings have shown that one of the benefits of ingesting a lot of soluble fiber, in particular the prebiotic ones, results in larger amounts of SCFAs in the colon. These SCFAs are made by the good bacteria in the colon such as Bifidobacter and Lactobacillus. These small molecules have been shown to do the following: ? Enhance the health and integrity of the colon wall ? Provide nourishment for the cells that actually line the colon ? Increases the acidity of the colon which is a very real health benefit ? Stabilize blood sugar for diabetics ? Reduce blood cholesterol and triglyceride ? Significantly enhance immunity ? May be a benefit for Crohn?s disease and ulcerative colitis patients Fiber and Gas Everyone has intestinal gas and that is a good thing. It means that bacteria, hopefully the good ones, are thriving. The normal amount of flatus passed each day depends on sex and what is eaten. The normal number of flatus is 10-20 times a day. When the bacteria that make intestinal gases are growing, it also means that other good bacteria are using the same fibers to grow and produce multiple health benefits, including the production of healthy short-chain fatty acids. These substances are produced quietly in the colon and produce many health-related outcomes. Soluble fiber should always be used in a gradual manner. If too much is consumed at any one time, then excess, but harmless, intestinal gas can occur. People with irritable bowel syndrome are particularly prone to bloating and mild cramping. In this instance, soluble fiber in the diet or supplement should be used in small doses and increased gradually. Finally, prebiotic fibers tend to cause the production of short-chain fatty acids which acidify the colon. This, in turn, reduces or stops the growth of bacteria that make the smelly hydrogen sulfide gases that produce noxious flatus. People who consume many vegetables with prebiotics or take a prebiotic fiber supplement often have non-odoriferous flatus. Fiber and Irritable Bowel Syndrome Irritable bowel syndrome (IBS) is one of the most common disorders of the lower digestive tract. The symptoms of IBS can be quite varied. They can be a mix of several symptoms such as constipation, diarrhea, crampy abdominal discomfort, bloating and gas. An attack of IBS can be triggered by emotional tension and anxiety, poor dietary habits and certain medications. It is now known that infections in the intestine can lead to long-term IBS symptoms. Increased amounts of fiber in the diet can help relieve the symptoms of irritable bowel syndrome by producing soft, bulky stools. This helps to normalize the time it takes for the stool to pass through the colon. Recent medical research with newer techniques has shown some surprising and dramatic findings for IBS patients. Specifically, there is a very significant and abnormal shift of bacteria from those that provide health benefits to those bad bacteria that we really do not want in the gut. The technical name for this bad group of bacteria is called Firmicutes. Along with this abnormal bacterial collection, there is a smoldering low-grade inflammation in the gut wall that may contribute to symptoms. The goal for IBS patients should be to gradually increase the soluble dietary fibers in the diet so as to promote the growth of good bacteria and so suppress the bad ones along with the associated inflammation. IBS patients need to be careful of the amount of soluble fiber they consume. The reason for this is that, while the good colon bacteria thrive on these fibers and produce health benefits, other gas-forming bacteria may generate excessive but harmless gas and subsequent bloating. Thus, soluble plant fibers or a dietary prebiotic supplement should be taken in small initial doses and then gradually increased to tolerance. Fiber and Colon Polyps/Cancer Colon cancer is a major health problem. This disease is most common in Western cultures. It is not seen very often in rural cultures where the diet is mostly plant based. Usually, colon cancer starts out as a colon polyp, a benign mushroom-shaped growth. In time it grows, and in some people it becomes cancerous. Colon cancer is usually always curable if polyps are removed when found or if surgery is performed at an early stage. It is now known that people can inherit the risk of developing colon cancer, but diet is important, too. As noted, there is a very low rate of colon cancer in residents of countries where grains are unprocessed and retain their fiber. It seems that in the [place] world, cancer-containing agents (carcinogens) remain in contact with the colon wall for a longer time and in higher concentrations. So, a large bulky stool may act to dilute these carcinogens by moving them through the bowel more quickly. Less carcinogenic exposure to the colon may mean fewer colon polyps and less cancer. A very current review of the entire world?s literature on the effect of fiber on colon polyps and cancer prevention has shown rather clearly that for every 10 grams of fiber added to the diet, there is a 10% reduction in incidence of colon cancer. So the recommended 30 gram fiber diet would result in a 30% less chance of getting these tumors. There are also substances produced in the colon by the good bacteria that seem to retard certain pre-cancer factors from developing. They are called short-chain fatty acids (SCFA). See above for description of SCFAs. A high fiber diet increases these substances. So, the combination of dietary fiber and the production of short-chain fatty acids have a clear health benefit. Fiber and Diverticulosis Prolonged, vigorous contraction of the colon over a long period of time may result in diverticulosis. This increased pressure causes small and, eventually, larger ballooning pockets to form. These pockets by themselves cause no problem. However, sometimes they become infected (diverticulitis) or even break open (perforate) causing infection or inflammation within the abdomen (peritonitis). A high fiber diet increases the bulk in the stool and thereby reduces the pressure within the colon. By so doing, the formation of pockets may be reduced or possibly even stopped. In the past, many physicians were fearful that seeds as in tomatoes, nuts or berries were harmful and could get inside these pockets and rattle around, causing damage. We now know that this has never been the case and that these foods contain lots of fiber and are actually beneficial for diverticulosis patients. Certain bulking agents such as psyllium are traditional types of bulk producing supplements. Psyllium is a soluble fiber. Combining it with insoluble fiber as in wheat bran or corn bran (no gluten) can enhance this bulking effect even more. A product containing a prebiotic, psyllium and wheat bran is probably a very good combination for bowel regularity. Prebiotin Regularity/Diverticulosis is one such product. Activity:: no lifting over 20#'s or strenuous activity x 24 hrs Diet:: small light meals x 24hrs Discharge Orders Discharge Orders: Discharge Order (Routine); Ordered 08/08/20 Ordered By: Jinny Chandra DS: Diagnosis Discharge Diagnosis (1) Adenomatous polyps: Status: Acute (2) Diverticula of colon: Status: Acute
--- NOTE | 2020-08-08 09:59 | COLE_ITS ---
Date of service: 08/08/20 Time of Service: 09:59 Colonoscopy Report Date of procedure: 08/08/20 Pre-op diagnosis general: A. polyps Post-op diagnosis procedure note: other (diverticula ) Surgeon: Jinny Chandra Anesthesia proc note operative: MAC Estimated blood loss (mL): 0 Pathology: other Complications: None Disposition: same day Prep: Miralax/Dulcolax Retraction Time: 15 mins Procedure Description: After informed consent was obtained the patient was taken to the procedure room and placed in a left decubitous position. Monitors were applied and a time out was done. The patients name, date of , procedure, al lergies to medications and metal in their body was reviewed. The patient was then sedated. Once sedated and comfortable a rectal exam was done. External exam was normal. Internal exam revealed a normal sphincter tone and no palpable masses. The prostate nl. The scope was then introduced and retrofelexed. no internal hemorrhoids were identified. The scope was then advanced to the cecum w/out difficulty. The TI and appendiceal orifice were identified. The prep was good. The scope was then slowly retracted over 15 minutes back into the rectum. Polyps were removed at : 90/70/60/30cm. These are small flat less than 5 mm polyps with no ulceration and removed in a single bite. These are removed w/ a cold forcept. All specimen is retrieved adn no bleeding is noted. He has moderate diverticula in the sigmoid and across the splenic flexure. It is stop at the splenic flexure. There is no signs of any active bleeding or infection. The scope was removed and the patient was woken up and taken back to Same day surgery in stable condition. The patient tolerated the procedure well and there were no immediate complications. Follow up: The patient should follow up in 10 years, depending on pathology; years unless they develop changes in bowel habits or other new gastrointestinal complaints.
[2020-08-08 10:15] VITALS: BP 124/88; PULSE 73; RESP 16; TEMP 36.5; O2SAT 95
== END 2020-08-08 10:44 | disposition home or self-care (01) ==
PROVIDERS: PCP Family Medicine; Visit Provider Surgery
PROC: 0DJD8ZZ Inspection of Lower Intestinal Tract, Via Natural or Artificial Opening Endoscopic (ICD-10-PCS; CPT 45378; principal; 2020-08-08 07:30)
DX: Z12.11 Encounter for screening for malignant neoplasm of colon (principal); Z86.010 Personal history of colon polyps; K57.30 Diverticulosis of large intestine without perforation or abscess without bleeding; D12.6 Benign neoplasm of colon, unspecified; K63.5 Polyp of colon; I10 Essential (primary) hypertension; K21.9 Gastro-esophageal reflux disease without esophagitis
CPT/HCPCS: 45380; 88305; J2001; J2704; J3010

== ENCOUNTER 2020-09-16 17:58 | Outpatient (REF) | payer BC, SELFPAY ==
[2020-09-16 20:23] LABS: Calculated LDL 76 mg/dL (<100); Cholesterol 164 mg/dL (<200); HDL Cholesterol 39 mg/dL (40-60); Triglyceride 248 mg/dL (<150)
[2020-09-16 20:44] LABS: Hemoglobin A1C 5.2 % (<5.7)
[2020-09-17 18:04] LABS: PSA, Screening 3.1 ng/mL (0.0-3.5)
[2020-09-18 10:31] LABS: HIV-1/2 Ag & Ab Screen Negative (Negative)
== END 2020-09-16 17:59 | disposition home or self-care (01) ==
LOC: NCHCN 17:58
PROVIDERS: PCP Family Medicine; Visit Provider Family Medicine
DX: Z00.00 Encounter for general adult medical examination without abnormal findings (principal); Z12.5 Encounter for screening for malignant neoplasm of prostate; Z11.4 Encounter for screening for human immunodeficiency virus [HIV]; Z13.1 Encounter for screening for diabetes mellitus; Z13.220 Encounter for screening for lipoid disorders
CPT/HCPCS: 80061; 84153; 87389; 83036

== ENCOUNTER 2021-09-22 11:08 | Outpatient (REF) | payer BC, SELFPAY ==
[2021-09-22 18:18] LABS: Anion Gap 7.3 mmol/L (3-11); BUN 18 mg/dL (7-18); CO2 25.7 mmol/L (21.0-32.0); CREATININE 0.9 mg/dL (0.70-1.30); Calcium 9.4 mg/dL (8.5-10.1); Chloride 102 mmol/L (98-107); Glucose 142 mg/dL (74-106); Potassium 4.2 mmol/L (3.5-5.1); Sodium 135 mmol/L (136-145)
== END 2021-09-22 11:09 | disposition home or self-care (01) ==
LOC: NCHCN 11:08
PROVIDERS: PCP Family Medicine; Visit Provider Family Medicine
DX: I10 Essential (primary) hypertension (principal)
CPT/HCPCS: 80048

== ENCOUNTER 2022-12-07 18:16 | Outpatient (REF) | payer BC, SELFPAY ==
[2022-12-07 14:56] LABS: ESR 20 mm/hr (0-20)
[2022-12-07 15:09] LABS: Anion Gap 11.1 mmol/L (3-11); BUN 16 mg/dL (7-18); CO2 25.9 mmol/L (21.0-32.0); CREATININE 0.8 mg/dL (0.70-1.30); Calcium 9.2 mg/dL (8.5-10.1); Chloride 100 mmol/L (98-107); Estimated GFR 101.95 (mL/min/1.73m2); Glucose 103 mg/dL (74-106); Potassium 4.2 mmol/L (3.5-5.1); Sodium 137 mmol/L (136-145)
[2022-12-07 16:05] LABS: Hemoglobin A1C 5.8 % (<5.7)
== END 2022-12-07 18:17 | disposition home or self-care (01) ==
LOC: NCHCN 18:16
PROVIDERS: PCP Family Medicine; Visit Provider Family Medicine
DX: Z00.00 Encounter for general adult medical examination without abnormal findings (principal); M25.511 Pain in right shoulder; Z13.1 Encounter for screening for diabetes mellitus; I10 Essential (primary) hypertension
CPT/HCPCS: 80048; 85652; 83036

== ENCOUNTER 2023-03-16 10:29 | Outpatient (CLI) | payer BC, SELFPAY ==
[2023-03-16 13:49] LABS: Anion Gap 9.2 mmol/L (3-11); BUN 11 mg/dL (7-18); CO2 26.8 mmol/L (21.0-32.0); CREATININE 0.9 mg/dL (0.70-1.30); Chloride 100 mmol/L (98-107); Estimated GFR 97.78 (mL/min/1.73m2); Glucose 117 mg/dL (74-106); Potassium 3.6 mmol/L (3.5-5.1); Sodium 136 mmol/L (136-145)
[2023-03-16 14:55] LABS: D-Dimer 345 ng/mlFEU (<500)
== END 2023-03-16 10:49 ==
LOC: DI 10:31
PROVIDERS: PCP Family Medicine; Visit Provider Family Medicine
DX: R07.89 Other chest pain (principal); R04.2 Hemoptysis
CPT/HCPCS: 36415; 80048; 85379

== ENCOUNTER → 2023-03-18 17:53 | Outpatient (CLI) | payer BC, SELFPAY ==
--- NOTE | 2023-03-18 | DI.RAD_ITS ---
Exam(s) XR CHEST 2V PA LATERAL EXAM: XR CHEST 2V PA LATERAL CLINICAL HISTORY: CHEST WALL PAIN, R07.89; HEMOPTYSIS, R04.2 TECHNIQUE: 2D digital imaging was performed of the chest. Two images were obtained. PA and lateral views were obtained. COMPARISON: CR CHEST 2 VIEWS PA,LAT from 06/10/2011 FINDINGS: MEDIASTINUM: Normal. HEART: Normal. PULMONARY VASCULATURE: Normal. LUNGS: Clear. PLEURAL SPACE: No pleural effusion or pneumothorax. BONE:Within normal limits for the patient's age. OTHER FINDINGS:Normal. IMPRESSION: No acute pulmonary findings. DATA REPOSITORY: RADIATION DOSE DELIVERED:
== END ==
PROVIDERS: PCP Family Medicine; Visit Provider Family Medicine
DX: R07.89 Other chest pain (principal); R04.2 Hemoptysis
CPT/HCPCS: 71046

== ENCOUNTER 2023-08-03 11:45 | Outpatient (REF) | payer BC, SELFPAY ==
[2023-08-03 15:55] LABS: Hemoglobin A1C 5.8 % (<5.7)
[2023-08-03 16:14] LABS: BUN 15 mg/dL (7-18); Calcium 9.4 mg/dL (8.5-10.1); Chloride 100 mmol/L (98-107); Estimated GFR 86.16 (mL/min/1.73m2); Glucose 100 mg/dL (74-106); Potassium 4.2 mmol/L (3.5-5.1); Sodium 137 mmol/L (136-145)
[2023-08-03 22:07] LABS: PSA, Screening 1.5 ng/mL (<=4.5)
[2023-08-03 22:58] LABS: HIV-1/2 Ag & Ab Screen Negative (Negative)
== END 2023-08-03 11:46 | disposition home or self-care (01) ==
LOC: NCHCN 11:45
PROVIDERS: PCP Family Medicine; Visit Provider Family Medicine
DX: Z00.00 Encounter for general adult medical examination without abnormal findings (principal); I10 Essential (primary) hypertension; Z13.1 Encounter for screening for diabetes mellitus; Z12.5 Encounter for screening for malignant neoplasm of prostate; Z11.4 Encounter for screening for human immunodeficiency virus [HIV]
CPT/HCPCS: 80048; 84153; 87389; 83036

== ENCOUNTER 2023-11-01 08:46 | Outpatient (CLI) | payer BC, SELFPAY ==
[2023-11-01 10:34] LABS: TSH (W/Ref FT4) 1.42 uIU/mL (0.36-3.74)
[2023-11-07 18:08] LABS: Testosterone, Free 13.6 ng/dL (3.67-13.9); Testosterone, Total 449 ng/dL (240-950)
== END 2023-11-01 08:47 | disposition home or self-care (01) ==
LOC: LBO 08:47
PROVIDERS: PCP Family Medicine; Visit Provider Family Medicine
DX: R68.82 Decreased libido (principal); E66.9 Obesity, unspecified
CPT/HCPCS: 36415; 84402; 84403; 84443

== ENCOUNTER 2024-04-17 01:16 | Outpatient (CLI) | payer OTHER, SELFPAY ==
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
== END 2024-04-17 01:36 ==
PROVIDERS: PCP Family Medicine; Visit Provider Family Medicine
DX: R93.89 Abnormal findings on diagnostic imaging of other specified body structures (principal)
CPT/HCPCS: 71046

== ENCOUNTER 2024-04-17 12:37 | Outpatient (CLI) | payer BC, SELFPAY ==
--- NOTE | 2024-04-17 07:30 | DI.US_ITS ---
APPROVED REPORT EXAM: Comprehensive 2D, Doppler, and color-flow Echocardiogram [facility] Administrator: Yoni Mascorro RDCS (AE) Indications: Edema lower extremity, risk factor for heart failure, obesity, HTN, ex-smoker, prediabet es Other Information Technically limited study due to body habitus. Conclusion Normal left ventricular wall thickness and chamber size. Ejection fraction is 57%. Wall motion is n ormal Normal right ventricular size and function Both atria are mildly dilated The aortic valve is mildly sclerotic and probably trileaflet without stenosis or regurgitation Ascending aorta measures 3.78 cm Wall motion Left Ventricle The left ventricle is normal size. The left ventricular systolic function is normal. The left ventric ular ejection fraction is within the normal range. There is normal left ventricular wall thickness. T here is normal LV segmental wall motion. There is no ventricular septal defect visualized. LVEF is 57 %. Right Ventricle The right ventricle is normal size. The right ventricular systolic function is normal. Atria Left atrium is mildly dilated. Right atrium is mildly dilated. The interatrial septum is intact with no evidence for an atrial septal defect. Aortic Valve The aortic valve is mildly sclerotic. Aortic valve is probably trileaflet. There is no aortic valvula r stenosis. No aortic regurgitation is present. Mitral Valve The mitral valve is normal in structure. No evidence of mitral valve stenosis. Trace mitral regurgita tion. Tricuspid Valve The tricuspid valve is normal in structure. There is no tricuspid valve stenosis. Trace tricuspid reg urgitation. Unable to assess PA pressure. Pulmonic Valve The pulmonary valve is normal in structure. There is no pulmonic valvular stenosis. There is no pulmo charbel valvular regurgitation. Great Vessels The aortic root is normal in size. The ascending aorta is mildly dilated. Aortic arch is normal in ca liber. IVC is normal in size and collapses >50% with inspiration. Pericardium There is no pericardial effusion. 2D Dimensions IVSD d PLAX 1.28 cm M: 0.6-1.2 Ao Root d 3.19 cm M: 3.1 - 3.7 LVPW d PLAX 1.27 cm M: 0.6 - 1.2 Ao Asc Diam d 3.73 cm M: 2.6 - 3.4 LVID d PLAX 4.77 cm M: 4.2 - 5.8 LVDs 3.37 cm M: 2.5 - 4.0 LV EF Teichholz 56.3 % FS 29.44 % LV EDV (Teich) 106.1 mL LV ESV (Teich) 46.4 mL Stroke Vol Index (Teich) 25.12 M-Mode TAPSE 1.98 cm (M/F) >1.7 Auto EF LV EDV A4C 148.8 mL LV EDV A2C 119.2 mL LV EDV BP 134.0 mL LV ESV A4C 69.0 mL LV ESV A2C 51.2 mL LV ESV BP 61.8 mL LVEF(%) A4C 53.7 % LVEF(%) A2C 57.0 % LVEF(%) BP 53.9 % LV SV A4C 79.8 ml LV SV A2C 67.9 ml LV SV BP 72.2 ml LV CO A4C 6.8 L/min LV CO A2C 5.5 L/min LV CO BP 6.2 L/min HR A4C 85.72 BPM HR A2C 80.54 BPM LV EDV Index (BP) LA Volume LA Length A4C 4.4 cm LA Length A2C 5.5 cm LA Area A4C s 14.42 cm2 LA Area A2C s 14.34 cm2 LA Vol A4C A-L 39.68 mL LA Vol A2C A-L 31.48 mL LA Vol Biplane A-L 39.5 mL LA Vol/BSA A4C A-L LA Vol/BSA A2C A-L LA Vol/BSA BP A-L 16.6 mL/m2 LA Vol A4C MOD 36.2 mL LA Vol A2C MOD 29.5 mL LA Vol BP MOD 35.2 mL RA Volume RA Area A4C 11.0 cm2 RA ESV A4C (A-L) 24.0mL RA Vol/BSA A4C A-L RA Length A4C 4.2 cm RA ESV A4C (MOD) 22.5mL LV Diastology MV E' medial 0.062 (>0.07 m/s) MV E Vmax 0.59 (0.4-1.3 m/s) MV E/E' MED 9.54 (<14) MV A Vmax 0.75 (0.4-1.3 m/s) MV E' lateral 0.101 (>0.1 m/s) E/A Ratio 0.8 MV E/E' LAT 5.79 (<14) MV E' Average 0.081 m/s MV E/E'(average) 7.21 Aortic Valve AoV Vmax 1.87 m/s LVOT Vmax 1.07 m/s AoV Peak Grad 14.0 mmHg LVOT Peak Grad 4.5 mmHg AoV Area (Vmax) 1.81 cm2 LVOT VTI 0.197 m AoV VTI 0.321 m LVOT Mean Grad 2.8 mmHg AoV Mean Lucas. 1.26 m/s LVOT SV 62.62 mL AoV Mean Grad 7.3 mmHg LVOT Diam s 2.00 cm AoV Area (VTI) 1.95 cm2 AV Regurg Peak Gr. 13.97 mmHg Velocity Ratio 0.57 Mitral Valve MV DT 213 (160-240 msec) MV Vmax TIPS 0.65 m/s MV Mean Grad 0.7 (<2mmHg) MV VTI 0.153 m Pulmonary Valve PV Vmax 1.08 (0.5-1.5 m/s) RVOT Vmax 0.85 m/s PV Peak Grad 4.7 mmHg RVOT Peak Gr. 2.9 mmHg PV Mean Lucas 0.77 m/s RVOT VTI 0.141 m PV Mean Grad 2.7 mmHg RVOT Mean Gr. 1.5 mmHg
== END 2024-04-17 12:57 ==
LOC: DI 12:39
PROVIDERS: PCP Family Medicine; Visit Provider Family Medicine
DX: R06.00 Dyspnea, unspecified (principal); I10 Essential (primary) hypertension
CPT/HCPCS: 93306

== ENCOUNTER 2024-09-27 12:38 | Outpatient (REF) | payer OTHER, SELFPAY ==
[2024-09-27 17:13] LABS: Anion Gap 7.5 mmol/L (3-11); BUN 19 mg/dL (7-18); CO2 29.5 mmol/L (21.0-32.0); Calcium 9.7 mg/dL (8.5-10.1); Chloride 104 mmol/L (98-107); Estimated GFR 85.63 (mL/min/1.73m2); Glucose 118 mg/dL (74-106); Potassium 4.6 mmol/L (3.5-5.1); Sodium 141 mmol/L (136-145)
== END 2024-09-27 12:39 | disposition home or self-care (01) ==
LOC: NCHCN 12:38
PROVIDERS: PCP Family Medicine; Visit Provider Student in an Organized Health Care Education/Training Program
DX: I10 Essential (primary) hypertension (principal)
CPT/HCPCS: 80048

== ENCOUNTER 2025-05-04 16:32 | Outpatient (REF) | payer OTHER, SELFPAY ==
[2025-05-04 18:37] LABS: COMMENT (LAB VIEW ONLY) 57.01 mg/dL; Microalb ug/mg Crea 15.1 ug/mg Cr
== END 2025-05-04 16:33 | disposition home or self-care (01) ==
LOC: NCHCN 16:32
PROVIDERS: PCP Family Medicine; Visit Provider Student in an Organized Health Care Education/Training Program
DX: R73.03 Prediabetes (principal)
CPT/HCPCS: 82043; 82570

== ENCOUNTER 2025-07-30 07:18 | Day surgery (SDC) | payer OTHER, SELFPAY ==
[2025-07-30 07:38] VITALS: BP 141/99; PULSE 90; RESP 20; TEMP 36.4; O2SAT 94
[2025-07-30] MEDS: Lactated Ringers 1,000 ML 80 ML IV (07:50)
--- NOTE | 2025-07-30 08:11 | W.ANESPRE ---
General Info Date of Service Date Performed: 07/30/25 Height: 5 ft 11 in Weight: 120.5 kg Body Mass Index (BMI): 37.0 Surgical Procedure: Operation Date: 07/30/25 08:35 Proposed Procedure Side Surgeon mimi George MD Meds Allergies and Home Medications Allergies Allergy/AdvReac Type Severity Reaction Status Date / Time No Known Allergies Allergy Verified 07/30/25 07:37 Home Medication ?Medication ?Instructions ?Recorded ibuprofen 200 mg tablet (Advil) 200 mg PO Q6H PRN 06/14/20 lisinopril 20 1 tab PO DAILY 06/14/20 mg-hydrochlorothiazide 25 mg tablet Held on 07/27/25. Instructions: Pt Stopped/Never Started omeprazole 20 mg capsule,delayed 20 mg PO DAILY 06/14/20 release Held on 07/27/25. Instructions: Pt Stopped/Never Started propranolol 80 mg capsule,24 80 mg PO DAILY 06/14/20 hr,extended release Held on 07/27/25. Instructions: Pt Stopped/Never Started sildenafil 50 mg tablet (Viagra) 50 mg PO DAILY PRN 06/14/20 Held on 07/27/25. Instructions: Pt Stopped/Never Started lorazepam 0.5 mg tablet 0.5 mg PO DAILY PRN 06/19/25 Held on 07/27/25. Instructions: Pt Stopped/Never Started valsartan 320 1 tab PO DAILY 06/19/25 mg-hydrochlorothiazide 12.5 mg tablet bisacodyl 5 mg tablet,delayed 5 mg PO ONCE Colonoscopy Bowel 06/25/25 release Prep #4 tabs polyethylene glycol 3350 17 238 g PO ONCE #238 grams 06/25/25 gram/dose oral powder Current Visit Medications: Current Medications Generic Name Dose Route Start Last Admin Trade Name Freq PRN Reason Stop Dose Admin Ringer's Solution 1,000 mls @ 80 mls/hr 07/30/25 06:00 07/30/25 07:50 IV 08/26/25 23:59 80 mls/hr INFUSION GLORIA Administration Sodium Biphosphate/Sodium Phosphate 133 ml 07/30/25 06:00 Na Phosphate Enema-Adult [address] 08/26/25 23:59 DIRECTED PRN Sodium Chloride 0 ml 07/30/25 06:00 Normal Saline Flush 10 Ml Syr IV 08/26/25 23:59 PRN PRN Sodium Chloride 0 ml 07/30/25 06:00 Normal Saline 10 Ml Vial IJ 08/26/25 23:59 DIRECTED PRN Sterile Water 0 ml 07/30/25 06:00 Water,Injection,Sterile 10 Ml Vial IJ 08/26/25 23:59 DIRECTED PRN PFSH Active Problems Active Problems: Problem Status Onset Code Cyst of right parotid gland Acute K11.6 Adjustment disorder Chronic F43.20 Urinary frequency Acute R35.0 Umbilical hernia Acute K42.9 Diverticula of colon Acute K57.30 Adenomatous polyps Acute D36.9 Medical History Medical History (Updated 07/30/25 @ 08:50 by Clare George MD) Tobacco use History of depression Tinea versicolor PTSD (post-traumatic stress disorder) Hypertension GERD (gastroesophageal reflux disease) Obesity Erectile dysfunction Plantar fasciitis Back pain Depression Adenomatous colon polyp Surgical History Surgical History History of colonoscopy (~08/08/20) Tobacco Smoking/Tobacco Use Status: Former Tobacco Use Alcohol Alcohol Intake: current Alcohol intake frequency: holidays/special occasions only Substance Use Substance use: Never Substance use type: does not use Vital Signs and Lab Results Vital Signs Most Recent Vital Signs in EMR: Most Recent Vital Signs Temp Pulse Resp BP Pulse Ox 36.4 C L 90 20 141/99 H 94 07/30/25 07:38 07/30/25 07:38 07/30/25 07:38 07/30/25 07:38 07/30/25 07:38 Imaging and Studies Imaging and Studies Study information below may be from another EMR and interpreted by another provider. Please see original notes in EMR for more complete details. Echocardiogram Summary: 04/17/24 Conclusion Normal left ventricular wall thickness and chamber size. Ejection fraction is 57%. Wall motion is normal Normal right ventricular size and function Both atria are mildly dilated The aortic valve is mildly sclerotic and probably trileaflet without stenosis or regurgitation Ascending aorta measures 3.78 cm Anesthesia Assessment and Plan Anesthesia History Personal History: Awareness Under Anesthesia Family History: No Family History of Anesthesia Complications Exercise Tolerance Exercise Tolerance: Metabolic Equivalents>4 Cardiac & Pulmonary Exam Cardiac Exam: Normal S1/S2 Heart Sounds Pulmonary Exam: Clear Bilateral Breath Sounds Implantable Cardiac Device Does patient have a Pacemaker or an ICD?: No Airway Exam Known Difficult Airway: No Mallampati Class: 2 Mouth Opening: Normal (> 3cm) Thyromental Distance: Greater than 3 cm Neck Range of Motion: Full ROM Neck Circumference: Normal Teeth Condition: Normal Dentition ASA Classification ASA Score: ASA 2 Emergency Case?: No NPO Status NPO Status: NPO Clears >2 hours, Solids >8 hours Anesthesia Plan Resuscitation Status: Full Code Anesthesia Technique: General Anesthesia Airway Planned: Natural Airway Monitors Used: Standard Monitors Preoperative Comments:: Prefers to be semi-awake and watch procedure.
[2025-07-30 08:13] VITALS: BMI 37.0
--- NOTE | 2025-07-30 08:48 | W.PM.HP.N ---
Date of service: 07/30/25 Time of Service: 08:48 Assessment and Plan Assessment and plan (1) Encounter for colonoscopy due to history of adenomatous colonic polyps: Status: Acute Assessment and plan: Discussed colonoscopy procedure risks, benefits, alternatives and expectations. Proceed as planned. History of Present Illness Narrative: Here for colonoscopy 60yo M presents for colonoscopy. He had three tubular adenomas in 2019 and is due for surveillance. No interval changes in health since he was seen in 06/25/25 office visit. He feels well and has no GI problems or symptoms. PFSH All Active Problems (Updated 07/30/25 @ 08:50 by Clare George MD) Encounter for colonoscopy due to history of adenomatous colonic polyps (Acute) Cyst of right parotid gland (Acute) Adjustment disorder (Chronic) Urinary frequency (Acute) Umbilical hernia (Acute) Diverticula of colon (Acute) Adenomatous polyps (Acute) Medical History Tobacco use History of depression Tinea versicolor PTSD (post-traumatic stress disorder) Hypertension GERD (gastroesophageal reflux disease) Obesity Erectile dysfunction Plantar fasciitis Back pain Depression Adenomatous colon polyp Surgical History History of colonoscopy (~08/08/20) Social History Smoking/Tobacco Use Status: Former Tobacco Use Quit Date: 08/09/97 Smoking risk assessment performed?: Yes Alcohol Intake: current Alcohol Intake frequency: holidays/special occasions only Drug use: Never Substance use type: does not use Do you feel safe at home: Yes Do you feel safe in your relationship?: Yes Meds Allergies and Home Medications Allergies Allergy/AdvReac Type Severity Reaction Status Date / Time No Known Allergies Allergy Verified 07/30/25 07:37 Home Medications ?Medication ?Instructions ?Recorded ?Confirmed ?Type ibuprofen 200 mg tablet (Advil) 200 mg PO Q6H PRN 06/14/20 07/27/25 History lisinopril 20 1 tab PO DAILY 06/14/20 07/27/25 History mg-hydrochlorothiazide 25 mg tablet Held on 07/27/25. Instructions: Pt Stopped/Never Started omeprazole 20 mg capsule,delayed 20 mg PO DAILY 06/14/20 07/27/25 History release Held on 07/27/25. Instructions: Pt Stopped/Never Started propranolol 80 mg capsule,24 80 mg PO DAILY 06/14/20 07/27/25 History hr,extended release Held on 07/27/25. Instructions: Pt Stopped/Never Started sildenafil 50 mg tablet (Viagra) 50 mg PO DAILY PRN 06/14/20 07/27/25 History Held on 07/27/25. Instructions: Pt Stopped/Never Started lorazepam 0.5 mg tablet 0.5 mg PO DAILY PRN 06/19/25 07/27/25 History Held on 07/27/25. Instructions: Pt Stopped/Never Started valsartan 320 1 tab PO DAILY 06/19/25 07/30/25 History mg-hydrochlorothiazide 12.5 mg tablet bisacodyl 5 mg tablet,delayed 5 mg PO ONCE Colonoscopy Bowel 06/25/25 07/30/25 Rx release Prep #4 tabs polyethylene glycol 3350 17 238 g PO ONCE #238 grams 06/25/25 07/27/25 Rx gram/dose oral powder Exam Narrative Exam Narrative: awake, NAD eomi, MMM midline trachea, neck is symmetric PULM: normal resp effort, equal chest rise with respiration, no wheezing audible CARDIAC: normal PMI, no jvd, regular rate, normal perfusion abdomen is nondistended. extremities are without deformity, normal movement of all four extremities speech is clear and coherent mood and affect are congruent, no focal neurological deficits skin without rash Results Last Vital Signs Temp 97.5 F L 07/30/25 07:38 Pulse 90 07/30/25 07:38 Resp 20 07/30/25 07:38 BP 141/99 H 07/30/25 07:38 Pulse Ox 94 07/30/25 07:38 VTE Prohylaxis Risk Level: Low Risk Contraindications: Active bleed/high bleed risk Prophylaxis: Patient ambulatory Time Spent Time spent with Patient: 40-54 minutes Time was spent: preparing to see the patient(eg.review tests), referring, communicating with other health chronic care nurse and counseling the patient
--- NOTE | 2025-07-30 09:04 | BOWEL_PTH ---
PATIENT: Nicole Mueller LOC: [facility] U#:[id number] AGE/SX: 60/M ROOM: RE07/30/[address]: Clare George MD : 1965 BED: DIS: 07/30/2025 SPEC #: [id number] RECD: 07/30/25 12:44 STATUS: NAVA REMara #: [id number] HAYDER: 07/30/25 09:[address]: Clare George DEPT: Surgical Specimen RECD BY: Jennifer Howell ENTERED: 07/30/25 12:46 SP TYPE: Bowel OTHR DR: Jose Angel Culp Tissues: 1 - BIOPSY BOWEL 2 - BIOPSY BOWEL 3 - BIOPSY BOWEL 4 - BIOPSY BOWEL 5 - BIOPSY BOWEL 6 - BIOPSY BOWEL Procedures: GROSS AND MICRO LEVEL 4 Comments: [id number]
[2025-07-30 09:31] VITALS: BP 140/102; PULSE 82; RESP 18; TEMP 36.3; O2SAT 96
--- NOTE | 2025-07-30 09:47 | W.ANESPOSTOP ---
Postoperative Evaluation Date, Time and Location Date Performed: 07/30/25 Time Performed: 09:44 Patient Location: [facility] Vital Signs Most Recent Imported Vital Signs: Most Recent Vital Signs Temp Pulse Resp BP Pulse Ox 36.3 C L 82 18 140/102 H 96 07/30/25 09:31 07/30/25 09:31 07/30/25 09:31 07/30/25 09:31 07/30/25 09:31 Pain Score Most Recent Pain Score: Most Recent Pain Score Pain Level 0 07/30/25 09:31 Assessment Mental Status: Awake (Alert & Oriented to Patient Baseline) Airway and Respiratory Function: Patent airway with normal (patient baseline) respiratory exam Cardiovascular Function: Hemodynamically Stable Hydration Status: Adequately Hydrated Nausea & Vomiting: No Nausea or Vomiting Pain: Pt. Denies Any Pain Peripheral Nerve Block: Patient did not receive a nerve block
--- NOTE | 2025-07-30 09:48 | W.PM.DSUDISC ---
Date of service: 07/30/25 Discharge Plan Disposition Patient Disposition: Home Condition: Stable Discharge Details Attending Provider: Clare George Primary Care Provider: Jose Angel Culp Home Meds and New Rx's Prescriptions: Continued propranolol 80 mg capsule,extended release 24 hr 80 mg PO DAILY ibuprofen [Advil] 200 mg tablet 200 mg PO Q6H PRN sildenafil [Viagra] 50 mg tablet 50 mg PO DAILY PRN Rx Instructions: administer 30 minutes to 4 hours before activity lisinopril-hydrochlorothiazide 20-25 mg tablet 1 tab PO DAILY omeprazole 20 mg capsule,delayed release(DR/EC) 20 mg PO DAILY lorazepam 0.5 mg tablet 0.5 mg PO DAILY PRN valsartan-hydrochlorothiazide 320-12.5 mg tablet 1 tab PO DAILY Discontinued bisacodyl 5 mg tablet,delayed release (DR/EC) 5 mg PO ONCE Qty: 4 0RF Rx Instructions: Per Colonoscopy bowel prep instructions polyethylene glycol 3350 17 gram/dose powder 238 g PO ONCE Qty: 238 0RF Rx Instructions: For Colonoscopy bowel prep, as directed by office Discharge Instructions Additional Instructions: Colon with 6 polyps seen and removed. One small ulcer also seen and sampled. You will need another colonoscopy in 3 years. I will notify you in writing of the colon polyp and ulcer biopsy news. Excellent prep today. Stand Alone Forms: [facility]est[facility] Discharge [facility] Jaciel Duque ([facility]), Portal Information Activity:: Activity as Tolerated Diet:: As Tolerated Discharge Orders Discharge Orders: Discharge Order (Routine); Ordered 07/30/25 Ordered By: Clare George DS: Diagnosis Discharge Diagnosis (1) Encounter for colonoscopy due to history of adenomatous colonic polyps: Status: Acute (2) Polyp of cecum: Status: Acute (3) Polyp of ascending colon: Status: Acute (4) Polyp of transverse colon: Status: Acute (5) Polyp of descending colon: Status: Acute (6) Sigmoid polyp: Status: Acute (7) Ulcer, colon: Status: Acute
--- NOTE | 2025-07-30 09:51 | W.COLOREPORT ---
Date of service: 07/30/25 Time of Service: 09:52 Colonoscopy Report Pre-op diagnosis general: History of colon polyps Post-op diagnosis procedure note: same (1. cecum polyp. 2. multiple ascending colon polyps. 3. transverse colon polyp. 4. Multiple descending colon polyps. 5. descending colon ulcer. 6. Sigmoid polyp ) Procedure: Colonoscopy Surgeon: Clare George Anesthesia Type: General:No Airway Estimated blood loss (mL): 0 Pathology: other (1. cecum polyp. 2. multiple ascending colon polyps. 3. transverse colon polyp. 4. Multiple descending colon polyps. 5. descending colon ulcer biopsy. 6. Sigmoid polyp) Complications: None Indications: History of tubulovillous adenoma, tubular adenoma Prep: Miralax/Dulcolax (excellent) Procedure Description: Informed consent was obtained and the patient was taken to the procedure area. The patient was placed in left lateral decubitus position on the procedure table. Timeout was performed. Anesthesia was induced. A lubricated colonoscope was inserted through the anus and passed to the cecum. The cecum was identified by the ileocecal valve and the appendiceal orifice. The scope was then slowly withdrawn and the colonic and rectal mucosa examined. In the cecum, 5mm sessile polyp seen and excised with cold forceps. In the ascending colon, two sessile polyps seen and excised with cold forceps. 5mm and 5mm. In the transverse colon, 3mm sessile polyp seen and excised with cold forceps. In the descending colon, a 7mm sessle polyp was excised with hot snare. Removal and retrieval with polyp trap were complete. In the descending colon, a 4mm sessile polyp seen and excised with cold forceps. In the descendin colon, 5mm ulcer was seen, adjacent to the larger descending polyp. Cold forceps biopsy was obtained with cold forceps. Sigmoid polyp 5mm sessile excised with cold forceps. Sigmoid diverticulosis was seen. The scope was retroflexed in the anorectal junction examined. Uncomplicated internal hemorrhoids present. Assessment and plan: History of adenomatous colon polyps Cecum polyp Multiple ascending colon polyps transverse colon polyp Multiple descending colon polyps descending colon ulcer Sigmoid polyp Sigmoid diverticulosis 6 polyps seen and removed. Next colonoscopy will be due in 3years. Will confirm in a letter after review of polyp biopsies. Small chronic appearing ulcer in the descending colon biopsied. Management based on findings. No other ulcers or inflammatory lesions seen.
[2025-07-30 09:56] VITALS: BP 135/80; PULSE 73; RESP 18; TEMP 36.2; O2SAT 96
== END 2025-07-30 10:05 | disposition home or self-care (01) ==
PROVIDERS: PCP Student in an Organized Health Care Education/Training Program; Visit Provider Surgery
PROC: 0DJD8ZZ Inspection of Lower Intestinal Tract, Via Natural or Artificial Opening Endoscopic (ICD-10-PCS; CPT 45378; principal; 2025-07-30 08:30)
DX: Z12.11 Encounter for screening for malignant neoplasm of colon (principal); D12.0 Benign neoplasm of cecum; D12.2 Benign neoplasm of ascending colon; D12.4 Benign neoplasm of descending colon; D12.5 Benign neoplasm of sigmoid colon; K63.3 Ulcer of intestine; K57.30 Diverticulosis of large intestine without perforation or abscess without bleeding; K55.9 Vascular disorder of intestine, unspecified
CPT/HCPCS: 45385; 45380; 88305; J2003; J2704; J3010